=== PATIENT | female | born 1965 | race Caucasian/White ===

== ENCOUNTER 2019-01-12 09:37 | Outpatient (CLI) | payer BC ==
--- NOTE | 2019-01-12 11:32 | RAD ---
PA AND LATERAL CHEST: History: Enlarged lymph node. FINDINGS: Comparison made with exam of 08-20-16. The heart size is normal. The aorta is tortuous. The lungs are well expanded with no focal areas of c onsolidation, pneumothoraces or pleural effusions. The right basilar lung nodule is slightly enlarged measuring 2 cm. Old right sided rib fractures are again noted. IMPRESSION: 1. No acute process. 2. Mild interval increase in size of the right basilar nodule since 08-20-16. Further evaluation with CT scan is recommended. Code T Code LN POS: [id number]
== END 2019-01-12 09:38 | disposition home or self-care (01) ==
LOC: BICRAD 09:37
PROVIDERS: ATTEND Family Medicine
DX: R61 Generalized hyperhidrosis (principal); F17.210 Nicotine dependence, cigarettes, uncomplicated; R91.1 Solitary pulmonary nodule; Z87.898 Personal history of other specified conditions; Z00.00 Encounter for general adult medical examination without abnormal findings; E78.5 Hyperlipidemia, unspecified; E55.9 Vitamin D deficiency, unspecified; E03.9 Hypothyroidism, unspecified; Z79.899 Other long term (current) drug therapy
CPT/HCPCS: 36415; 71046; 80053; 80061; 81001; 82306; 84443; 85025

== ENCOUNTER 2019-04-16 07:16 | Outpatient (CLI) | payer BC ==
--- NOTE | 2019-04-16 08:46 | CT ---
Exam: Chest CT scan with IV contrast: HISTORY: Follow-up right basilar nodular density COMPARISON: 09/25/2012 CT Right lower lobe pulmonary nodule is noted now measuring 1.7 x 1.8 cm in size where as on the 2012 [address] [facility] it measured approximately 1.4 x 1.5 cm indicating very mild growth since that study. Small stable pleural-based nodule in the right upper lobe laterally. No mediastinal mass or adenopathy. No pleural effusion. No pericardial effusion. Small hiatal hernia. Visualized upper abdomen is unremarkable. IMPRESSION: Right lower lobe pulmonary nodule showing very slight increase in size since exam from 2012. Small [address] able right upper lobe pleural-based nodule.
== END 2019-04-16 07:17 | disposition home or self-care (01) ==
LOC: CT 07:16
PROVIDERS: ATTEND Family Medicine
DX: R91.8 Other nonspecific abnormal finding of lung field (principal)
CPT/HCPCS: 71260